=== PATIENT | female | born 1980 | race Caucasian/White ===

== ENCOUNTER → 2017-02-05 | Outpatient (CLI) | payer MEDICAID ==
--- NOTE | 2017-02-05 08:28 | US ---
EXAMINATION TYPE: US pelvis complete transvag DATE OF EXAM: 02/05/2017 COMPARISON: NONE CLINICAL HISTORY: N92.0 Menoraghia. heavy, clotty menses TECHNIQUE: Transvaginal (TV) and Transabdominal (TA) Date of LMP: 01/09/2017 EXAM MEASUREMENTS: Uterus: 8.5 x 4.9 x 5.4 cm Endometrial Stripe: 1.7 cm Right Ovary: 2.5 x 1.6 x 2.2 cm Left Ovary: 2.7 x 1.6 x 2.6 cm 1. Uterus: retroflexed 2. Endometrium: 1.1, menses due at any time 3. Right Ovary: 0.7 x 0.8 x 1.1 cm hypoechoic area, most likely resolving follicle 4. Left Ovary: follicles 5. Bilateral Adnexa: wnl 6. Posterior cul-de-sac: no free fluid Uterus is retroverted in shape. Endometrium measures up to 11 mm on transvaginal imaging which is wit hin normal limits for secretory phase of menstrual cycle. No free fluid is seen in pelvis. Both ovaries are identified. Within right ovary there is nonspecific 7 mm hypoechoic lesion could ref lect involuting corpus luteal cyst. Small follicles are scattered throughout visualized left ovary. IMPRESSION: No suspicious finding is seen to account for patient's symptoms.
== END | disposition home or self-care (01) ==
LOC: RADUSWWP 07:32
PROVIDERS: ATTEND Obstetrics & Gynecology
DX: N92.0 Excessive and frequent menstruation with regular cycle (principal)
CPT/HCPCS: 76830; 76856

== ENCOUNTER → 2017-02-19 | Outpatient (CLI) | payer MEDICAID ==
[2017-02-19 07:26] LABS: Basophils % (A) 1 %; CH 28.2; CHCM 32.5; Eosinophils # (A) 0.1 k/uL (0-0.7); Eosinophils % (A) 3 %; HCT 41.1 % (34.0-46.0); HGB 13.4 gm/dL (11.4-16.0); Luc # (Auto) 0.16; Luc % (Auto) 3; Lymphocytes # (A) 1.7 k/uL (1.0-4.8); Lymphocytes % (A) 36 %; MCH 28.5 pg (25.0-35.0); MCHC 32.6 g/dL (31.0-37.0); MCV 87.2 fL (80.0-100.0); Mean Platelet Volume 7.1; Monocytes # (A) 0.4 k/uL (0-1.0); Monocytes % (A) 8 %; Neutrophils # (A) 2.3 k/uL (1.3-7.7); Neutrophils % (A) 50 %; RBC 4.72 m/uL (3.80-5.40); RDW 12.8 % (11.5-15.5); WBC 4.7 k/uL (3.8-10.6); WBC (Perox) 4.65
== END | disposition home or self-care (01) ==
LOC: LABPAT 06:44
PROVIDERS: ATTEND Obstetrics & Gynecology
DX: Z01.812 Encounter for preprocedural laboratory examination (principal)
CPT/HCPCS: 85025

== ENCOUNTER 2017-02-25 06:58 | Day surgery (SDC) | payer MEDICAID ==
[2017-02-19 14:27] VITALS: BMI 23.5
[~2017-02-25 06:58] MED LIST: DEXAMETHASONE SOD PHOSPHATE 10 MG/ML 1 ML VIAL IV ONE; HYDROmorphone 0.5 MG/0.5 ML SYRINGE IVP PRN; LACTATED RINGERS 1,000 ML IV SCH; ONDANSETRON 4 MG/2 ML VIAL IVP ONE; Pre Op ABX Message 1 EACH MISC MISCELLANE ONE
[2017-02-25] MEDS ORDERED: LIDOCAINE 1% 20 ML VIAL (10MG/ML) FOR IV START INTRADERMA ONE (07:38)
[2017-02-25] MEDS ORDERED: SCOPOLAMINE 1.5MG/72HR PATCH TRANSDERM ONE (07:50)
[2017-02-25] MEDS ORDERED: MIDAZOLAM 2 MG/2 ML VIAL ONE (07:55)
[2017-02-25] MEDS ORDERED: fentaNYL (PF) 50 MCG/ML 2 ML AMP ONE (07:55)
[2017-02-25] MEDS ORDERED: PROPOFOL 10 MG/ML 20 ML VIAL IV ONE (07:55)
[2017-02-25] MEDS ORDERED: LIDOCAINE 1% INJ 10MG/ML (20 ML MDV) ONE (07:55)
[2017-02-25] MEDS ORDERED: KETOROLAC 30 MG/ML 1 ML VIAL ONE (07:55)
--- NOTE | 2017-02-25 07:56 | P.HPOB ---
History of Present Illness H&P Date: 02/25/17 Chief Complaint: Menorrhagia 36 year old presents for D&C, hysteroscopy, endometrial ablation with NovaSure. Review of Systems All systems: negative Constitutional: Denies chills, Denies fever Eyes: denies blurred vision, denies pain Ears, nose, mouth and throat: Denies headache, Denies sore throat Cardiovascular: Denies chest pain, Denies shortness of breath Respiratory: Denies cough Gastrointestinal: Denies abdominal pain, Denies diarrhea, Denies nausea, Denies vomiting Genitourinary: Denies dysuria, Denies hematuria Musculoskeletal: Denies myalgias Integumentary: Denies pruritus, Denies rash Neurological: Denies numbness, Denies weakness Psychiatric: Denies anxiety, Denies depression Endocrine: Denies fatigue, Denies weight change Past Medical History Additional Past Medical History / Comment(s): HX MIGRAINES, MOTION SICKNESS, MENORRHAGIA History of Any Multi-Drug Resistant Organisms: None Reported Past Surgical History: Tubal Ligation Additional Past Surgical History / Comment(s): [place] teeth Past Anesthesia/Blood Transfusion Reactions: No Reported Reaction, Motion Sickness Past Psychological History: Anxiety Smoking Status: Never smoker Past Alcohol Use History: Occasional Past Drug Use History: None Reported - Past Family History Mother Family Medical History: No Reported History Medications and Allergies Home Medications Medication Instructions Recorded Confirmed Type Ibuprofen [Motrin] 400 mg PO Q8HR PRN 02/19/17 02/25/17 History Multivitamins, Thera [Multivitamin 1 tab PO DAILY 02/19/17 02/25/17 History (formulary)] Allergies Allergy/AdvReac Type Severity Reaction Status Date / Time amoxicillin Allergy Unknown Rash/Hives Verified 02/25/17 07:21 clavulanic acid Allergy Unknown Rash/Hives Verified 02/25/17 07:21 [From Augmentin] sulfamethoxazole Allergy Unknown Rash/Hives Verified 02/25/17 07:21 [From Bactrim] trimethoprim [From Bactrim] Allergy Unknown Rash/Hives Verified 02/25/17 07:21 ranitidine HCl [From Zantac] Allergy DECREASED Verified 02/25/17 07:21 HEART RATE AND BP. Sulfa (Sulfonamide Allergy Rash/Hives Verified 02/25/17 07:21 Antibiotics) Exam Osteopathic Statement: *. No significant issues noted on an osteopathic structural exam other than those noted in the History and Physical/Consult. - Vital Signs Vital signs: Vital Signs Temp Pulse Resp BP Pulse Ox 02/25/17 07:23 98.2 F 85 16 114/73 95 Heart: Regular rate and rhythm Lungs: Clear to auscultation bilaterally Abdomen: Soft, nontender Extremities: Negative Homans sign Assessment and Plan (1) Menorrhagia Status: Acute Plan: 1. D&C, hysteroscopy, endometrial ablation with NovaSure
--- NOTE | 2017-02-25 08:32 | P.OP ---
Date of Procedure: 02/25/17 Preoperative Diagnosis: 1. Menorrhagia Postoperative Diagnosis: 1. Menorrhagia Procedure(s) Performed: D&C hysteroscopy and endometrial ablation with NovaSure Anesthesia: ALMA Surgeon: Dottie Welsh Estimated Blood Loss (ml): 3 IV fluids (ml): 300 Urine output (ml): 10 Pathology: other (endometrial currettings) Condition: stable Disposition: PACU Operative Findings: cavity length 6.5cm, width 3.1cm, power 111 Wagner, Time of ablation 73 seconds; adequate ablation after NovaSure. Description of Procedure: Patient is taken the operating room where general anesthesia was obtained without difficulty. She was prepped and draped in normal sterile fashion dorsal lithotomy position, legs placed in the Hublishedy cane stirrups. Bladder was drained of all urine. Weighted speculum placed in the vagina and the anterior lip the cervix was grasped with serial tooth tenaculum. The uterus sounded to 10 cm and the cervix under 3.5 cm making the cavity length 6.5 cm. The cervix was dilated to #8 Hegar dilator. Hysteroscopy was then performed. Both ostia were visualized and there was a smooth contour of the uterus. Sharp curet was then gently used to obtain endometrial curettings. The NovaSure was introduced into the uterus with a cavity length of 6.5 cm, width 3.1 cm. after cavity assessment was passed, the time of ablation was 73 seconds at 111 W. Hysteroscopy was again performed and adequate ablation was noted. All instruments removed from the vagina. Patient tolerated the procedure well, sponge and instrument counts were correct 2 and she was taken to recovery in stable condition.
[2017-02-25 08:34] VITALS: TEMP 98.8
[2017-02-25 08:46] VITALS: RESP 16
[2017-02-25 09:55] VITALS: BP 105/71; PULSE 60
== END 2017-02-25 10:02 | disposition home or self-care (01) ==
LOC: OR 06:58
PROVIDERS: ATTEND Obstetrics & Gynecology
DX: N92.0 Excessive and frequent menstruation with regular cycle (principal); G43.909 Migraine, unspecified, not intractable, without status migrainosus; Z88.1 Allergy status to other antibiotic agents; Z88.2 Allergy status to sulfonamides; Z88.8 Allergy status to other drugs, medicaments and biological substances
CPT/HCPCS: 58563; 81025; 88305; J2250; J1100; J2405; J2001; J3010; J1885; J2704; J1170

== ENCOUNTER → 2018-01-05 | Outpatient (CLI) | payer MEDICAID ==
[2018-01-05 07:01] LABS: Appearance,Urine Clear (Clear); Basophils % (A) 0 %; Bilirubin,Urine Negative (Negative); Blood,Urine Negative (Negative); Color,Urine Yellow; Eosinophils # (A) 0.1 k/uL (0-0.7); Eosinophils % (A) 3 %; Glucose,Urine (UA) Negative (Negative); HCT 39.8 % (34.0-46.0); HGB 13.2 gm/dL (11.4-16.0); Ketones,Urine Negative (Negative); Leukocyte Esterase,Urine Negative (Negative); Lymphocytes # (A) 1.7 k/uL (1.0-4.8); Lymphocytes % (A) 40 %; MCH 27.9 pg (25.0-35.0); MCHC 33.1 g/dL (31.0-37.0); MCV 84.1 fL (80.0-100.0); Mean Platelet Volume 7.2; Monocytes # (A) 0.4 k/uL (0-1.0); Monocytes % (A) 8 %; Neutrophils % (A) 45 %; Nitrite,Urine Negative (Negative); PH, Urine 5.5 (5.0-8.0); Platelet Count 217 k/uL (150-450); Protein,Urine Negative (Negative); RBC 4.73 m/uL (3.80-5.40); RDW 12.8 % (11.5-15.5); Specific Gravity,Urine 1.015 (1.001-1.035); Urobilinogen,Urine <2.0 mg/dL (<2.0); WBC 4.3 k/uL (3.8-10.6)
[2018-01-05 07:28] LABS: Anion Gap 8 mmol/L; Blood Urea Nitrogen 18 mg/dL (7-17); Carbon Dioxide 26 mmol/L (22-30); Chloride 105 mmol/L (98-107); Glucose 86 mg/dL (74-99); Potassium 4.4 mmol/L (3.5-5.1); Sodium 139 mmol/L (137-145)
== END | disposition home or self-care (01) ==
LOC: LABPAT 06:37
PROVIDERS: ATTEND Obstetrics & Gynecology
DX: Z01.812 Encounter for preprocedural laboratory examination (principal); N39.3 Stress incontinence (female) (male); R35.0 Frequency of micturition
CPT/HCPCS: 36415; 80048; 81003; 85025; 87086

== ENCOUNTER 2018-01-13 05:46 | Observation (INO) | payer MEDICAID ==
[2017-12-31 10:17] VITALS: BMI 23.1
--- NOTE | 2018-01-12 17:09 | P.HPOB ---
History of Present Illness H&P Date: 01/12/18 Chief Complaint: Menorrhagia, BRUNILDA 37 year old presents for Total laparoscopic hysterectomy with davinici and sling by Dr Phan. Review of Systems All systems: negative Constitutional: Denies chills, Denies fever Eyes: denies blurred vision, denies pain Ears, nose, mouth and throat: Denies headache, Denies sore throat Cardiovascular: Denies chest pain, Denies shortness of breath Respiratory: Denies cough Gastrointestinal: Denies abdominal pain, Denies diarrhea, Denies nausea, Denies vomiting Genitourinary: Denies dysuria, Denies hematuria Musculoskeletal: Denies myalgias Integumentary: Denies pruritus, Denies rash Neurological: Denies numbness, Denies weakness Psychiatric: Denies anxiety, Denies depression Endocrine: Denies fatigue, Denies weight change Past Medical History Additional Past Medical History / Comment(s): HEAVY MENSES WITH CRAMPING. WITH LEAKY BLADDER History of Any Multi-Drug Resistant Organisms: None Reported Past Surgical History: Tubal Ligation, Uterine Ablation Additional Past Surgical History / Comment(s): [place] teeth REMOVED WITH ANESTHESIA Past Anesthesia/Blood Transfusion Reactions: Motion Sickness Smoking Status: Never smoker - Past Family History Mother Family Medical History: No Reported History Medications and Allergies Home Medications Medication Instructions Recorded Confirmed Type Ibuprofen [Motrin] 400 mg PO Q8HR PRN 02/19/17 12/31/17 History Multivitamins, Thera [Multivitamin 1 tab PO DAILY 02/19/17 12/31/17 History (formulary)] Allergies Allergy/AdvReac Type Severity Reaction Status Date / Time amoxicillin Allergy Unknown Rash/Hives Verified 12/31/17 10:12 clavulanic acid Allergy Unknown Rash/Hives Verified 12/31/17 10:12 [From Augmentin] sulfamethoxazole Allergy Unknown Rash/Hives Verified 12/31/17 10:12 [From Bactrim] trimethoprim [From Bactrim] Allergy Unknown Rash/Hives Verified 12/31/17 10:12 ranitidine HCl [From Zantac] Allergy DECREASED Verified 12/31/17 10:12 HEART RATE AND BP. Sulfa (Sulfonamide Allergy Rash/Hives Verified 12/31/17 10:12 Antibiotics) Exam Osteopathic Statement: *. No significant issues noted on an osteopathic structural exam other than those noted in the History and Physical/Consult. Heart: RRR Lungs: CTAB Abdomen: soft, nontender Extremeties: neg rosalina's Assessment and Plan (1) Menorrhagia Status: Acute Code(s): N92.0 - EXCESSIVE AND FREQUENT MENSTRUATION WITH REGULAR CYCLE SNOMED Code(s): 272198687 (2) BRUNILDA (stress urinary incontinence, female) Status: Acute Code(s): N39.3 - STRESS INCONTINENCE (FEMALE) (MALE) SNOMED Code(s): 95052273 Plan: 1. total laparoscopic hysterectomy with da gilbert and sling with Dr Phan.
--- NOTE | 2018-01-12 21:04 | P.GSHP ---
History of Present Illness H&P Date: 01/12/18 This 37 yo was seen for incontinence. She has documented BRUNILDA She has a hypermobile urethra. SHe comes for a hysterectomy by Dr Welsh and a transobturator tape by me. The risk of TOT , mesh controversy have been explained understood and accepted by this patient including retention, infection , erosion, injury to adjacent organs, dyspareunia, failure among others. - Constitutional Constitutional: Denies chills, Denies fever Past Medical History Additional Past Medical History / Comment(s): HEAVY MENSES WITH CRAMPING. WITH LEAKY BLADDER History of Any Multi-Drug Resistant Organisms: None Reported Past Surgical History: Tubal Ligation, Uterine Ablation Additional Past Surgical History / Comment(s): [place] teeth REMOVED WITH ANESTHESIA Past Anesthesia/Blood Transfusion Reactions: Motion Sickness Smoking Status: Never smoker - Past Family History Mother Family Medical History: No Reported History Medications and Allergies Home Medications Medication Instructions Recorded Confirmed Type Ibuprofen [Motrin] 400 mg PO Q8HR PRN 02/19/17 12/31/17 History Multivitamins, Thera [Multivitamin 1 tab PO DAILY 02/19/17 12/31/17 History (formulary)] Allergies Allergy/AdvReac Type Severity Reaction Status Date / Time amoxicillin Allergy Unknown Rash/Hives Verified 12/31/17 10:12 clavulanic acid Allergy Unknown Rash/Hives Verified 12/31/17 10:12 [From Augmentin] sulfamethoxazole Allergy Unknown Rash/Hives Verified 12/31/17 10:12 [From Bactrim] trimethoprim [From Bactrim] Allergy Unknown Rash/Hives Verified 12/31/17 10:12 ranitidine HCl [From Zantac] Allergy DECREASED Verified 12/31/17 10:12 HEART RATE AND BP. Sulfa (Sulfonamide Allergy Rash/Hives Verified 12/31/17 10:12 Antibiotics) Surgical - Exam - General well developed, well nourished, no distress - Eyes PERRL - ENT no hearing loss - Neck no masses - Respiratory normal expansion, normal respiratory effort - Cardiovascular Rhythm: regular - Abdomen Abdomen: soft, non tender - Genitourinary hypermobile urethra normal external genitalia, normal perineum - Integumentary no rash, no growths - Neurologic normal coordination, normal sensation - Musculoskeletal normal gait, normal posture - Psychiatric oriented to time, oriented to person, oriented to place, speech is normal, memory intact Assessment and Plan Assessment: Impression: BRUNILDA Plan: TOT
[~2018-01-13 05:46] MED LIST changes: -DEXAMETHASONE SOD PHOSPHATE 10 MG/ML 1 ML VIAL IV ONE; -HYDROmorphone 0.5 MG/0.5 ML SYRINGE IVP PRN; -LACTATED RINGERS 1,000 ML IV SCH; +LEVOFLOXACIN 500MG-D5W PMX 500 MG in DEXTROSE/WATER 1 100ML.BAG IVPB ONE; -ONDANSETRON 4 MG/2 ML VIAL IVP ONE; -Pre Op ABX Message 1 EACH MISC MISCELLANE ONE
[2018-01-13] MEDS ORDERED: MIDAZOLAM 2 MG/2 ML VIAL IV PRN (05:49)
[2018-01-13] MEDS ORDERED: DEXAMETHASONE SOD PHOSPHATE 10 MG/ML 1 ML VIAL IV ONE (05:49)
[2018-01-13] MEDS ORDERED: ONDANSETRON 4 MG/2 ML VIAL IVP ONE (05:49)
[2018-01-13] MEDS ORDERED: HYDROmorphone 0.5 MG/0.5 ML SYRINGE IVP PRN (05:49)
[2018-01-13] MEDS: LACTATED RINGERS 1,000 ML IV SCH ×2 (06:39→11:37)
[2018-01-13] MEDS ORDERED: LACTATED RINGERS 1,000 ML IV ONE (06:39)
[2018-01-13] MEDS ORDERED: LIDOCAINE 1% 20 ML VIAL (10MG/ML) FOR IV START INTRADERMA ONE (06:40)
[2018-01-13] MEDS ORDERED: SCOPOLAMINE 1.5MG/72HR PATCH TRANSDERM ONE (06:40)
[2018-01-13] MEDS ORDERED: NEOSTIGMINE 1 MG/ML 10 ML VIAL ONE (07:13)
[2018-01-13] MEDS ORDERED: LIDOCAINE 1% INJ 10MG/ML (20 ML MDV) ONE (07:13)
[2018-01-13] MEDS ORDERED: fentaNYL (PF) 50 MCG/ML 2 ML AMP ONE (07:13)
[2018-01-13] MEDS ORDERED: ACETAMINOPHEN IV (For NPO) 1,000 MG/100 ML VIAL ONE (07:13)
[2018-01-13] MEDS ORDERED: HYDROmorphone (PF) 1 MG/ML ONE (07:13)
[2018-01-13] MEDS ORDERED: SUCCINYLCHOLINE CHLORIDE 100 MG/5 ML SYR IV ONE (07:13)
[2018-01-13] MEDS ORDERED: GLYCOPYRROLATE 0.2 MG/ML 2 ML VIAL ONE (07:13)
[2018-01-13] MEDS ORDERED: KETOROLAC 30 MG/ML 1 ML VIAL ONE (07:13)
[2018-01-13] MEDS ORDERED: MIDAZOLAM 2 MG/2 ML VIAL ONE (07:13)
[2018-01-13] MEDS ORDERED: PROPOFOL 10 MG/ML 20 ML VIAL IV ONE (07:13)
[2018-01-13] MEDS ORDERED: BUPIVACAINE (PF) 0.5% 30 ML VIAL SQ ONE ×2 (08:00)
[2018-01-13] MEDS ORDERED: GENTAMICIN 80 MG in SODIUM CHLORIDE 0.9% 500 ML IRRIGATION ONE (08:16)
[2018-01-13] MEDS ORDERED: VASOPRESSIN 20 UNIT/ML 1 ML VIAL IM ONE ×2 (08:16→08:40)
[2018-01-13] MEDS ORDERED: ROPIVACAINE 5 MG/ML 30 ML VIAL MISCELLANE ONE (08:34)
--- NOTE | 2018-01-13 08:47 | P.OP ---
Date of Procedure: 01/13/18 Preoperative Diagnosis: 1. Menorrhagia 2. BRUNILDA Postoperative Diagnosis: Same Procedure(s) Performed: Total laparoscopic hysterectomy with da Alla, bladder sling with Dr. Phan Anesthesia: ALMA Surgeon: Dottie Welsh Rn Homecare #1: Konrad Mays Estimated Blood Loss (ml): 3 IV fluids (ml): 900 Urine output (ml): 100 Pathology: other (Uterus and cervix) Condition: stable Disposition: PACU Operative Findings: Normal uterus, tubes, ovaries Description of Procedure: Patient taken the operating room where general anesthesia was obtained without difficulty. She is prepped and draped in normal sterile fashion dorsal lithotomy position, legs placed in the Rivas stirrups. Weighted speculum placed in the vagina and the anterior lip the cervix was grasped with single- tooth tenaculum. The uterus sounded to 8 cm and the cervix diameter was 3.5 cm. The appropriate manipulator tip and ring were placed on the Samina manipulator. The Samina manipulator was then placed in the uterus. Delgadillo catheter was also placed. Attention was then turned to the abdomen and gloves were changed. A 5 mm supraumbilical incision was made the scalpel and a 5 mm optical trocar was placed under direct visualization. 10 cm to the right of this and 2 cm down a 5 mm incision was made and 8 mm da Alla port was placed under direct visualization. Same measurements on the opposite side of the patient's abdomen, the 5 mm incision was made and 8 mm da Alla port was placed under direct visualization. In the left upper quadrant a 10 mm incision was made and a 10 mm optical trocar was placed under direct visualization. The 5 mm optical trocar was then replaced with the 8 mm da Alla camera port. The robot was docked on patient's right side. The camera was introduced and then the monopolar curved scissor and [place] bipolar placed under direct visualization. I broke scrub and went to the physician console. The left utero -ovarian ligament was cauterized with the [place] bipolar and cut with monopolar curved scissors. The left round ligament was cauterized with the [place] bipolar and cut with monopolar curved scissors. The posterior leaf of the broad ligament was taken down using the monopolar curved scissors. Anterior leaf of the broad ligament was then taken down using the monopolar curved scissors. The uterine artery was cauterized with the [place] bipolar and cut with monopolar curved scissors. The bladder flap was then started using the monopolar curved scissors. Attention was then turned to the right side of the patient's anatomy and the right utero-ovarian ligament was cauterized with the [place] bipolar and cut with monopolar curved scissors. The right round ligament was cauterized with the [place] bipolar and cut with monopolar curved scissors. Posterior leaf of the broad ligament was taken down using the monopolar curved scissors and the anterior leaf was taken down using the monopolar curved scissors. The uterine artery was cauterized the [place] bipolar cut with monopolar curved scissors. The bladder flap was then finished on this side. Anterior colpotomy was made using the monopolar curved scissors. The rest of the uterus was from the vaginal cuff by following the ring around with the monopolar curved scissors through the uterosacral ligaments back to the anterior portion. Once the uterus and cervix were amputated they were pulled through the vaginal cuff. Hemostasis was assured. The instruments were changed for the Cardier forcep and the medhat suture cut. The vaginal cuff was then closed using O stratafix barbed suture in a running fashion. Hemostasis was again assured and the pelvis was irrigated. All instruments were removed from the abdomen and the robot was undocked. I scrubbed back in to perform a cystoscopy. There were jets from both ureteral orifices. The abdominal incisions were closed with 4-0 Vicryl in a subcuticular fashion. Dr. Finley then stepped in to perform his part of the procedure, please see his dictation for details on this. Patient tolerated the procedure well, sponge and instrument counts correct 2 and she was taken to recovery room in stable condition condition
--- NOTE | 2018-01-13 08:58 | P.OP ---
Date of Procedure: 01/13/18 Preoperative Diagnosis: Stress urinary incontinence Postoperative Diagnosis: Same Procedure(s) Performed: Trans-obturator tape with cystoscopy Anesthesia: ALMA Surgeon: Piero Phan Estimated Blood Loss (ml): 50 Pathology: none sent Condition: stable Disposition: PACU Indications for Procedure: The patient is 37. She has documented stress urinary incontinence. She will undergo a robotic-assisted laparoscopic hysterectomy by Dr. Welsh. I will perform a trans-obturator tape at the end of the hysterectomy Description of Procedure: The patient has been previously placed in the operating room and given a general anesthetic and Dr. Welsh has performed a robotic-assisted laparoscopic hysterectomy. I entered the procedure. She is in lithotomy position with a previous sterile prep and drape. A Delgadillo catheters introduced. The labia are sewn laterally to 0 silk. Vaginal exposure stitches are used to 2-0 silk's. Incisions in the inguinal crease bilaterally at the level clitoris are made. The anterior vaginal mucosa was elevated off the submucosa with 20 units of Pitressin and 60 mL of saline. 10 mL or use. Midline suburethral incision is made. I dissect lateral and bladder neck bilaterally. I passed the introducers into the obturator foramen into the vaginal space making sure not to buttonhole the vagina. This is done bilaterally. I do cystoscopy to make sure there is no bladder injury with a 17-Israeli cystoscope Foroblique lens and there is none. The bladder is normal. I attached the graft to the introducers and pull it back through the obturator foramen. The graft sit in the mid urethra nicely without tension. The redundant graft was excised. The inguinal incisions are closed with 4-0 Vicryl the vaginal incisions closed with 3-[address] A vaginal packs place. This didn't the labial stitches have been removed. The Delgadillo catheters were introduced before placing the graft. Patient awake and returned recovery in good condition. My portion of the blood loss is 50 mL.
[2018-01-13] MEDS ORDERED: diphenhydrAMINE 50 MG/ML 1 ML VIAL IVP ONE (09:41)
[2018-01-13] MEDS ORDERED: diphenhydrAMINE 50 MG/ML 1 ML VIAL IVP PRN (11:01)
[2018-01-13] MEDS ORDERED: Acetaminophen-Codeine 300-30mg TAB PO PRN ×2 (11:01)
[2018-01-13] MEDS ORDERED: SIMETHICONE 80 MG CHEWABLE PO PRN (11:01)
[2018-01-13] MEDS ORDERED: LACTATED RINGERS 1,000 ML IV SCH (11:01)
[2018-01-13] MEDS ORDERED: ZOLPIDEM 5 MG TAB PO PRN (11:01)
[2018-01-13] MEDS: ONDANSETRON 4 MG/2 ML VIAL IVP PRN (11:16)
[2018-01-13] MEDS: METOCLOPRAMIDE 5 MG/ML 2 ML VIAL IVP PRN (14:01)
[2018-01-13] MEDS: KETOROLAC 30 MG/ML 1 ML VIAL IVP PRN ×2 (14:30→20:24)
[2018-01-13] MEDS: SENNOSIDES-DOCUSATE SODIUM 1 EACH TAB PO SCH ×2 (19:28→20:26)
[2018-01-13] MEDS: ACETAMINOPHEN TAB 325 MG TAB PO PRN (19:30)
[2018-01-14] MEDS: ACETAMINOPHEN TAB 325 MG TAB PO PRN ×3 (00:11→10:17)
[2018-01-14] MEDS: KETOROLAC 30 MG/ML 1 ML VIAL IVP PRN ×3 (02:18→14:41)
--- NOTE | 2018-01-14 07:26 | P.PN ---
Subjective Progress Note Date: 01/14/18 The patient underwent a robotic-assisted laparoscopic hysterectomy and a trans- obturator tape yesterday. She feels okay. The catheter and packing of been removed. If she voids without difficulty she can be discharged home later today. She should follow-up in the office in one week. Objective - Vital Signs Vital signs: Vital Signs Temp 98.3 F 01/13/18 20:00 Pulse 72 01/13/18 20:00 Resp 16 01/13/18 20:00 BP 100/60 01/13/18 20:00 Pulse Ox 99 01/13/18 13:55 Intake & Output 01/13/18 01/14/18 01/14/18 18:59 06:59 18:59 Intake Total 1476 Output Total 1245 2300 Balance 231 -2300 Weight 67.132 kg Intake: IV 1476 Output: Urine 1150 2300 Uretheral (Delgadillo) 300 Emesis 75 Estimated Blood Loss 20 Other: Voiding Method Indwelling Catheter
[2018-01-14] MEDS: ONDANSETRON 4 MG/2 ML VIAL IVP PRN (07:45)
[2018-01-14 08:45] LABS: Basophils % (A) 0 %; Eosinophils % (A) 1 %; HCT 35.8 % (34.0-46.0); HGB 11.9 gm/dL (11.4-16.0); Lymphocytes # (A) 1.4 k/uL (1.0-4.8); Lymphocytes % (A) 19 %; MCH 27.9 pg (25.0-35.0); MCHC 33.2 g/dL (31.0-37.0); Mean Platelet Volume 7.9; Monocytes # (A) 0.5 k/uL (0-1.0); Monocytes % (A) 7 %; Neutrophils # (A) 5.1 k/uL (1.3-7.7); Neutrophils % (A) 72 %; Platelet Count 179 k/uL (150-450); RBC 4.26 m/uL (3.80-5.40); RDW 12.8 % (11.5-15.5); WBC 7.1 k/uL (3.8-10.6)
[2018-01-14] MEDS: METOCLOPRAMIDE 5 MG/ML 2 ML VIAL IVP PRN (09:04)
[2018-01-14] MEDS: SENNOSIDES-DOCUSATE SODIUM 1 EACH TAB PO SCH (13:26)
[2018-01-14 14:38] VITALS: BP 104/77; PULSE 54; RESP 18; TEMP 98.4
== END 2018-01-14 15:00 | disposition home or self-care (01) ==
LOC: OR 05:46 → 4FBP 09:08 → OR 22:00
PROVIDERS: ADMIT Obstetrics & Gynecology; ATTEND Obstetrics & Gynecology
DX: N80.0 Endometriosis of uterus (principal); N92.0 Excessive and frequent menstruation with regular cycle; N39.3 Stress incontinence (female) (male); N72 Inflammatory disease of cervix uteri; N36.41 Hypermobility of urethra; Z88.1 Allergy status to other antibiotic agents; Z88.0 Allergy status to penicillin; Z88.2 Allergy status to sulfonamides; Z88.8 Allergy status to other drugs, medicaments and biological substances; Z98.51 Tubal ligation status
CPT/HCPCS: 57288; 58570; S2900; 81025; 85025; 86850; 86900; 86901; 88307

== ENCOUNTER 2019-09-07 14:04 | Emergency (ER) | payer MEDICAID ==
--- NOTE | 2019-09-07 14:32 | ED ---
General Adult HPI - General Source: patient, RN notes reviewed, old records reviewed Mode of arrival: wheelchair Limitations: no limitations <Gustavo Wright - Last Filed: 09/07/19 14:47> <Jignesh Martin - Last Filed: 09/07/19 16:01> - General Chief complaint: Dizziness Stated complaint: Dizziness/Palpitations Time Seen by Provider: 09/07/19 14:10 - History of Present Illness Initial comments: This is a 39-year-old female presents emergency Department with a one hour history of feeling her heart flutter. Patient also states she felt lightheaded and thought she was going to pass out. Patient states currently she is not having any fluttering but just prior to getting into the room and was again fluttering. Patient denies any drug use. Patient denies any fever chills per patient denies any recent cough. Patient denies any abdominal pain. Patient denies any new medications. (Gustavo Wright) - Related Data Home Medications Medication Instructions Recorded Confirmed Ibuprofen [Motrin] 400 mg PO Q8HR PRN 02/19/17 12/31/17 Multivitamins, Thera [Multivitamin 1 tab PO DAILY 02/19/17 12/31/17 (formulary)] Previous Rx's Medication Instructions Recorded Acetaminophen-Codeine 300-30mg 2 tab PO Q6H PRN #24 tablet 01/14/18 [Tylenol #3] Ibuprofen [Motrin] 600 mg PO Q6HR PRN #30 tab 01/14/18 Allergies Allergy/AdvReac Type Severity Reaction Status Date / Time amoxicillin Allergy Unknown Rash/Hives Verified 09/07/19 14:16 clavulanic acid Allergy Unknown Rash/Hives Verified 09/07/19 14:16 [From Augmentin] sulfamethoxazole Allergy Unknown Rash/Hives Verified 09/07/19 14:16 [From Bactrim] trimethoprim [From Bactrim] Allergy Unknown Rash/Hives Verified 09/07/19 14:16 ranitidine HCl [From Zantac] Allergy DECREASED Verified 09/07/19 14:16 HEART RATE AND BP. Sulfa (Sulfonamide Allergy Rash/Hives Verified 09/07/19 14:16 Antibiotics) Review of Systems ROS Other: All systems not noted in ROS Statement are negative. <Gustavo Wright - Last Filed: 09/07/19 14:47> ROS Other: All systems not noted in ROS Statement are negative. <BoosalomeJignesh Willem - Last Filed: 09/07/19 16:01> ROS Statement: Those systems with pertinent positive or pertinent negative responses have been documented in the HPI. Past Medical History Past Medical History: No Reported History Additional Past Medical History / Comment(s): HEAVY MENSES WITH CRAMPING. WITH LEAKY BLADDER History of Any Multi-Drug Resistant Organisms: None Reported Past Surgical History: Hysterectomy, Tubal Ligation, Uterine Ablation Additional Past Surgical History / Comment(s): [place] teeth REMOVED WITH ANES THESIA Past Anesthesia/Blood Transfusion Reactions: Motion Sickness Past Psychological History: No Psychological Hx Reported Smoking Status: Never smoker Past Alcohol Use History: Occasional Past Drug Use History: None Reported - Past Family History Mother Family Medical History: No Reported History <Gustavo Wright - Last Filed: 09/07/19 14:47> General Exam Limitations: no limitations <Gustavo Wright - Last Filed: 09/07/19 14:47> - General Exam Comments Initial Comments: GENERAL: Patient is well-developed and well-nourished. Patient is nontoxic and well- hydrated and is in no acute distress. ENT: Neck is soft and supple. No significant lymphadenopathy is noted. Oropharynx is clear. Moist mucous membranes. Neck has full range of motion without eliciting any pain. EYES: The sclera were anicteric and conjunctiva were pink and moist. Extraocular movements were intact and pupils were equal round and reactive to light. Eyelids were unremarkable. PULMONARY: Unlabored respirations. Good breath sounds bilaterally. No audible rales rhonchi or wheezing was noted. CARDIOVASCULAR: There is a regular rate and rhythm without any murmurs gallops or rubs. ABDOMEN: Soft and nontender with normal bowel sounds. SKIN: Skin is clear with no lesions or rashes and otherwise unremarkable. NEUROLOGIC: Patient is alert and oriented x3. Cranial nerves II through XII are grossly intact. Motor and sensory are also intact. Normal speech, volume and content. Symmetrical smile. MUSCULOSKELETAL: Normal extremities with adequate strength and full range of motion. LYMPHATICS: No significant lymphadenopathy is noted PSYCHIATRIC: Patient is mildly anxious (Gustavo Wright) Course Vital Signs 09/07/19 09/07/19 14:14 15:32 Temperature 97.3 F L Pulse Rate 83 80 Respiratory 16 18 Rate Blood Pressure 143/79 117/76 O2 Sat by Pulse 100 100 Oximetry Medical Decision Making <Gustavo Wright - Last Filed: 09/07/19 14:47> - Lab Data Result diagrams: 09/07/19 14:49 09/07/19 14:49 <Jignesh Martin - Last Filed: 09/07/19 16:01> - Medical Decision Making Dr. Martin will be taking care of this patient starting at 3 PM EKG shows normal sinus rhythm at 69 bpm DE interval 244 QRS is 76 QT interval 392 QTC is 420. Patient's EKG shows no ST segment elevation or depression. (Gustavo Wright) This patient was cared for during a federal and state declared state of emergency secondary to Covid 19 Patient care signed out to me by previous shift physician Dr. Wright. Briefly, patient is 39-year-old female presents with dizziness and palpitations. Plan on sign out was to follow-up with ordered laboratory evaluation Laboratory evaluation obtained. CBC unremarkable. Coag panel unremarkable. Metabolic panel shows no acute processes. Troponin negative. Abdominal labs negative. TSH is normal limits. Chest x-ray is nonacute. 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 Patient reevaluated bedside she is well-appearing with no apparent distress. Discussed the patient is she should follow-up with cardiology for outpatient evaluation and possible Holter monitoring. Patient understandable and agreeable with disposition. Patient will be discharged. (Jignesh Martin) - Lab Data Lab Results 09/07/19 09/07/19 09/07/19 Range/Units 14:49 14:49 14:49 WBC 5.1 (3.8-10.6) k/uL RBC 4.43 (3.80-5.40) m/uL Hgb 12.6 (11.4-16.0) gm/dL Hct 37.8 (34.0-46.0) % MCV 85.4 (80.0-100.0) fL MCH 28.4 (25.0-35.0) pg MCHC 33.3 (31.0-37.0) g/dL RDW 12.8 (11.5-15.5) % Plt Count 180 (150-450) k/uL Neutrophils % 48 % Lymphocytes % 38 % Monocytes % 7 % Eosinophils % 2 % Basophils % 1 % Neutrophils # 2.5 (1.3-7.7) k/uL Lymphocytes # 1.9 (1.0-4.8) k/uL Monocytes # 0.4 (0-1.0) k/uL Eosinophils # 0.1 (0-0.7) k/uL Basophils # 0.0 (0-0.2) k/uL Manual Slide Review Performed RBC Morphology Normal PT 10.2 (9.0-12.0) sec INR 1.0 (<1.2) APTT 23.6 (22.0-30.0) sec Sodium 136 L (137-145) mmol/L Potassium 4.1 (3.5-5.1) mmol/L Chloride 103 (98-107) mmol/L Carbon Dioxide 26 (22-30) mmol/L Anion Gap 7 mmol/L BUN 18 H (7-17) mg/dL Creatinine 0.95 (0.52-1.04) mg/dL Est GFR (CKD-EPI)AfAm 88 (>60 ml/min/1.73 sqM) Est GFR (CKD-EPI)NonAf 76 (>60 ml/min/1.73 sqM) Glucose 105 H (74-99) mg/dL Calcium 8.9 (8.4-10.2) mg/dL Magnesium 2.1 (1.6-2.3) mg/dL Total Bilirubin 0.4 (0.2-1.3) mg/dL AST 30 (14-36) U/L ALT 17 (4-34) U/L Alkaline Phosphatase 45 (38-126) U/L Troponin I (0.000-0.034) ng/mL Total Protein 6.9 (6.3-8.2) g/dL Albumin 4.2 (3.5-5.0) g/dL TSH 4.090 (0.465-4.680) mIU/L 09/07/19 Range/Units 14:49 WBC (3.8-10.6) k/uL RBC (3.80-5.40) m/uL Hgb (11.4-16.0) gm/dL Hct (34.0-46.0) % MCV (80.0-100.0) fL MCH (25.0-35.0) pg MCHC (31.0-37.0) g/dL RDW (11.5-15.5) % Plt Count (150-450) k/uL Neutrophils % % Lymphocytes % % Monocytes % % Eosinophils % % Basophils % % Neutrophils # (1.3-7.7) k/uL Lymphocytes # (1.0-4.8) k/uL Monocytes # (0-1.0) k/uL Eosinophils # (0-0.7) k/uL Basophils # (0-0.2) k/uL Manual Slide Review RBC Morphology PT (9.0-12.0) sec INR (<1.2) APTT (22.0-30.0) sec Sodium (137-145) mmol/L Potassium (3.5-5.1) mmol/L Chloride (98-107) mmol/L Carbon Dioxide (22-30) mmol/L Anion Gap mmol/L BUN (7-17) mg/dL Creatinine (0.52-1.04) mg/dL Est GFR (CKD-EPI)AfAm (>60 ml/min/1.73 sqM) Est GFR (CKD-EPI)NonAf (>60 ml/min/1.73 sqM) Glucose (74-99) mg/dL Calcium (8.4-10.2) mg/dL Magnesium (1.6-2.3) mg/dL Total Bilirubin (0.2-1.3) mg/dL AST (14-36) U/L ALT (4-34) U/L Alkaline Phosphatase (38-126) U/L Troponin I <0.012 (0.000-0.034) ng/mL Total Protein (6.3-8.2) g/dL Albumin (3.5-5.0) g/dL TSH (0.465-4.680) mIU/L Disposition <Gustavo Wright - Last Filed: 09/07/19 14:47> Is patient prescribed a controlled substance at d/c from ED?: No Time of Disposition: 16:01 <Jignesh Martin - Last Filed: 09/07/19 16:01> Clinical Impression: Palpitations Disposition: HOME SELF-CARE Condition: Good Instructions (If sedation given, give patient instructions): Dizziness (ED), Heart Palpitations (ED) Referrals: Sudhir Mckeon MD [STAFF PHYSICIAN] - 1-2 days
[2019-09-07] MEDS ORDERED: SODIUM CHLORIDE 0.9% 1,000 ML IV ONE (14:46)
[2019-09-07 15:11] LABS: Albumin 4.2 g/dL (3.5-5.0); Calcium 8.9 mg/dL (8.4-10.2); Magnesium 2.1 mg/dL (1.6-2.3); Potassium 4.1 mmol/L (3.5-5.1); Total Bilirubin 0.4 mg/dL (0.2-1.3); Total Protein 6.9 g/dL (6.3-8.2)
[2019-09-07 15:15] LABS: Basophils % (A) 1 %; Eosinophils # (A) 0.1 k/uL (0-0.7); Eosinophils % (A) 2 %; HCT 37.8 % (34.0-46.0); HGB 12.6 gm/dL (11.4-16.0); Lymphocytes # (A) 1.9 k/uL (1.0-4.8); Lymphocytes % (A) 38 %; MCH 28.4 pg (25.0-35.0); MCHC 33.3 g/dL (31.0-37.0); MCV 85.4 fL (80.0-100.0); Mean Platelet Volume 7.8; Monocytes # (A) 0.4 k/uL (0-1.0); Monocytes % (A) 7 %; Neutrophils # (A) 2.5 k/uL (1.3-7.7); Neutrophils % (A) 48 %; Platelet Count 180 k/uL (150-450); RBC 4.43 m/uL (3.80-5.40); RDW 12.8 % (11.5-15.5); WBC 5.1 k/uL (3.8-10.6)
[2019-09-07 15:30] LABS: Partial Thromboplastin Time 23.6 sec (22.0-30.0); Prothrombin Time 10.2 sec (9.0-12.0)
[2019-09-07 15:34] VITALS: RESP 18
[2019-09-07] MEDS ORDERED: ACETAMINOPHEN TAB 325 MG TAB PO STA (15:34)
--- NOTE | 2019-09-07 15:34 | XR ---
EXAMINATION TYPE: XR chest 2V DATE OF EXAM: 09/07/2019 COMPARISON: NONE HISTORY: Dysrhythmia. TECHNIQUE: Frontal and lateral views of the chest are obtained. FINDINGS: Overlying EKG leads are seen. There is no focal air space opacity, pleural effusion, or pne umothorax seen. The cardiac silhouette size is within normal limits. The osseous structures are in tact. IMPRESSION: No acute process.
[2019-09-07 16:35] VITALS: BP 106/72; PULSE 79; TEMP 97.8
== END 2019-09-07 16:35 | disposition home or self-care (01) ==
LOC: EC 14:04
DX: R00.2 Palpitations (principal); R42 Dizziness and giddiness; Z88.0 Allergy status to penicillin; Z88.1 Allergy status to other antibiotic agents; Z88.2 Allergy status to sulfonamides; Z88.8 Allergy status to other drugs, medicaments and biological substances
CPT/HCPCS: 36415; 71046; 80053; 83735; 84443; 84484; 85025; 85610; 85730; 93005; 96360; 99284

== ENCOUNTER → 2019-09-13 | Outpatient (CLI) | payer MEDICAID ==
[2019-09-13 15:52] LABS: ALT 15 U/L (8-44); AST 21 U/L (13-35); Chol/HDL Ratio 2.54; Cholesterol 180 mg/dL (0-200); Triglycerides <50.0 mg/dL (0.0-149.0)
== END | disposition home or self-care (01) ==
LOC: LABWHC1 08:01
PROVIDERS: ATTEND Internal Medicine Interventional Cardiology
DX: E78.2 Mixed hyperlipidemia (principal)
CPT/HCPCS: 36415; 80061; 84439; 84450; 84460

== ENCOUNTER → 2020-05-21 | Outpatient (CLI) | payer MEDICAID ==
--- NOTE | 2020-05-21 12:47 | XR ---
KUB HISTORY: Recent Covid 19 infection, hiatal hernia Frontal KUB submitted on 2 images There is no evident bowel obstruction or pneumoperitoneum. Calcifications in the right hemipelvis may represent phleboliths but are indeterminate and measures only 1 mm. Bone mineralization is normal. IMPRESSION: Nonobstructive bowel gas pattern and additional findings above.
--- NOTE | 2020-05-21 12:49 | XR ---
EXAMINATION TYPE: XR chest 2V DATE OF EXAM: 05/21/2020 COMPARISON: Chest x-ray 09/07/2019 HISTORY: Recent Covid 19 infection, hiatal hernia TECHNIQUE: Frontal and lateral views of the chest are obtained. FINDINGS: There is no focal air space opacity, pleural effusion, or pneumothorax seen. The cardiac silhouette size is within normal limits. The osseous structures are intact. IMPRESSION: No acute cardiopulmonary process.
== END | disposition home or self-care (01) ==
LOC: RADXRMAIN 10:33
PROVIDERS: ATTEND Registered Nurse
DX: Z09 Encounter for follow-up examination after completed treatment for conditions other than malignant neoplasm (principal); Z86.19 Personal history of other infectious and parasitic diseases
CPT/HCPCS: 71046; 74018

== ENCOUNTER → 2020-06-05 | Outpatient (CLI) | payer MEDICAID ==
--- NOTE | 2020-06-05 11:53 | ECHOF ---
Referral Reason:R00.2 palpitation MEASUREMENTS -------- HEIGHT: 170.2 cm WEIGHT: 70.3 kg BP: RVIDd: 2.9 cm (< 3.3) IVSd: 1.0 cm (0.6 - 1.1) LVIDd: 4.1 cm (3.9 - 5.3) LVPWd: 0.8 cm (0.6 - 1.1) IVSs: 1.4 cm LVIDs: 2.6 cm LVPWs: 1.3 cm LA Diam: 3.0 cm (2.7 - 3.8) Ao Diam: 3.1 cm (2.0 - 3.7) AV Cusp: 2.1 cm (1.5 - 2.6) MV EXCURSION: 14.100 mm (> 18.000) MV EF SLOPE: 114 mm/s (70 - 150) EPSS: 0.4 cm MV E Leif: 0.82 m/s MV DecT: 139 ms MV A Leif: 0.68 m/s MV E/A Ratio: 1.21 RAP: 5.00 mmHg RVSP: 21.84 mmHg FINDINGS -------- Sinus rhythm. This was a technically good study. The left ventricular size is normal. Left ventricular wall thickness is normal. Overall left vent ricular systolic function is normal with, an EF between 60 - 65 %. The right ventricle is normal in size. The left atrial size is normal. The right atrium is normal in size. Interatrial and interventricular septum intact. The aortic valve is trileaflet and appears structurally normal. There is trace mitral regurgitation. Mild tricuspid regurgitation present. Right ventricular systolic pressure is normal at < 35 mmHg. Trace/mild (physiologic) pulmonic regurgitation. The aortic root size is normal. Normal inferior vena cava with normal inspiratory collapse consistent with estimated right atrial pre ssure of 5 mmHg. There is no pericardial effusion. CONCLUSIONS -------- 1. The left ventricular size is normal. 2. Left ventricular wall thickness is normal. 3. Overall left ventricular systolic function is normal with, an EF between 60 - 65 %. 4. There is trace mitral regurgitation. 5. Mild tricuspid regurgitation present. 6. Trace/mild (physiologic) pulmonic regurgitation. 7. There is no pericardial effusion. PLATEN PRESS FEEDER: Anastacia Veronica [facility]
--- NOTE | 2020-06-05 14:02 | EST ---
EXERCISE STRESS AGE: 39 SEX: Female HT: 67" WT: 155 PROTOCOL: Porter STAGE: IV DURATION OF EXERCISE: 11 minutes HEART RATE REST: 86 BLOOD PRESSURE REST: 107/83 MAXIMUM HEART RATE ACHIEVED: 175 MAXIMUM BLOOD PRESSURE: 138/73 85% MPHR: 154 100% MPHR: 181 METS: 12 INDICATIONS: Palpitations. CLINICAL INFORMATION: Baseline EKG shows sinus rhythm, normal axis, normal intervals. Patient exercised on Porter protocol for a total of 11 minutes, achieving 12 METs, 96% of predicted maximal heart rate without chest pain or diagnostic ST-segment depression. CONCLUSIONS: 1. Excellent exercise tolerance. 2. Negative stress test by EKG criteria. MMODL / IJN: [id number] /
== END | disposition home or self-care (01) ==
LOC: RADNMMAIN 10:40
PROVIDERS: ATTEND Internal Medicine Interventional Cardiology
DX: I07.1 Rheumatic tricuspid insufficiency (principal); I37.1 Nonrheumatic pulmonary valve insufficiency
CPT/HCPCS: 93017; 93306

== ENCOUNTER → 2020-06-18 | Outpatient (CLI) | payer MEDICAID ==
[2020-06-18 07:39] LABS: HCT 37.8 % (34.0-46.0); HGB 12.9 gm/dL (11.4-16.0); MCH 29.2 pg (25.0-35.0); MCHC 34.2 g/dL (31.0-37.0); MCV 85.2 fL (80.0-100.0); Mean Platelet Volume 7.1; Platelet Count 230 k/uL (150-450); RBC 4.43 m/uL (3.80-5.40); RDW 12.8 % (11.5-15.5); WBC 4.9 k/uL (3.8-10.6)
[2020-06-18 12:41] LABS: African American GFR (CKD) 107.6 (60.0-200.0); Albumin 4.5 g/dL (3.80-4.90); Albumin/Globulin Ratio 2.14 (1.60-3.17); Anion Gap 9.8 mmol/L (4.00-12.00); BUN/Creat Ratio 22.5 Ratio (12.00-20.00); Calcium 9.2 mg/dL (8.7-10.3); Carbon Dioxide 24.2 mmol/L (21.6-31.8); Chol/HDL Ratio 3.15; Globulin 2.1 g/dL (1.6-3.3); LDL Cholesterol,Calculated 120.2 mg/dL (0.0-131.0); Non-African American GFR(CKD) 92.9 (60.0-200.0); Potassium 4.2 mmol/L (3.5-5.5); Total Bilirubin 0.6 mg/dL (0.2-1.2); Total Protein 6.6 g/dL (6.2-8.2); VLDL Calculation 10.8 mg/dL (5.00-40.00)
== END | disposition home or self-care (01) ==
LOC: LABWHC1 07:08
PROVIDERS: ATTEND Nurse Practitioner Adult Health
DX: Z00.00 Encounter for general adult medical examination without abnormal findings (principal); R00.2 Palpitations; R53.83 Other fatigue
CPT/HCPCS: 36415; 80053; 80061; 82306; 83735; 84443; 84481; 85027

== ENCOUNTER → 2020-07-08 | Outpatient (CLI) | payer MEDICAID ==
--- NOTE | 2020-07-08 08:46 | MM ---
Reason for exam: screening (asymptomatic). Baseline mammogram. Physical Findings: Nurse did not find any significant physical abnormalities on exam. MG 3D Screening Mammo W/Cad Bilateral CC and MLO view(s) were taken. There are scattered fibroglandular densities. There is no discrete abnormality. These results were verbally communicated with the patient and result sheet given to the patient on 07/08/20. ASSESSMENT: Negative, BI-RAD 1 RECOMMENDATION: Routine screening mammogram of both breasts in 1 year.
== END | disposition home or self-care (01) ==
LOC: RADMAMWWP 07:41
PROVIDERS: ATTEND Internal Medicine
DX: Z12.31 Encounter for screening mammogram for malignant neoplasm of breast (principal)
CPT/HCPCS: 77063; 77067

== ENCOUNTER → 2021-05-02 | Outpatient (CLI) | payer MEDICAID, OTHER | END | disposition home or self-care (01) | LOC: LABWHC1 09:58 | PROVIDERS: ATTEND Emergency Medicine | DX: Z20.822 Contact with and (suspected) exposure to COVID-19 (principal) | CPT/HCPCS: 87635 ==

== ENCOUNTER → 2021-05-03 | Outpatient (CLI) | payer MEDICAID, OTHER | END | disposition home or self-care (01) | LOC: LABWHC1 10:26 | PROVIDERS: ATTEND Emergency Medicine | DX: Z20.822 Contact with and (suspected) exposure to COVID-19 (principal) | CPT/HCPCS: 87635 ==

== ENCOUNTER → 2022-12-11 | Outpatient (CLI) | payer MEDICAID ==
--- NOTE | 2022-12-14 08:12 | MM ---
Reason for Exam: Screening (asymptomatic). Last mammogram was performed 2 year(s) and 5 month(s) ago. Patient History: Menarche at age 13. First Full-Term at age 25. Hysterectomy at age 37. Risk Values: Rebeka 5 year model risk: 0.7%. NCI Lifetime model risk: 10.9%. Prior Study Comparison: 07/08/2020 Bilateral Screening Mammogram, [facility]. Tissue Density: There are scattered fibroglandular densities. Findings: Analyzed By CAD. There is no suspicious group of microcalcifications or new suspicious mass in either breast. Overall Assessment: Benign, BI-RAD 2 Management: Screening Mammogram of both breasts in 1 year. . Patient should continue monthly self-breast exams. A clinical breast exam by your physician is recommended on an annual basis. This exam should not preclude additional follow-up of suspicious palpable abnormalities. Note on Rebeka scores and lifetime risk: 1. A Rebeka score greater than 3% is considered moderate risk. If this is the case, consider specialist referral to assess eligibility for a risk reducing agent. 2. If overall lifetime risk for the development of breast cancer is 20% or higher, the patient may qualify for future screening with alternating mammogram and breast MRI. Electronically signed and approved by: Walt Tay M.D. Radiologis
== END | disposition home or self-care (01) ==
LOC: RADMAMWWP 13:33
PROVIDERS: ATTEND Internal Medicine
DX: Z12.31 Encounter for screening mammogram for malignant neoplasm of breast (principal)
CPT/HCPCS: 77063; 77067